=== PATIENT | female | born 1970 | race Two or more races ===

== ENCOUNTER 2024-05-25 20:00 | Emergency (ER) | payer MEDICAID ==
[~2024-05-25] VITALS: Ht 165.1 cm; Wt 67.3 kg
[2024-05-25 20:06] VITALS: BP 123/83; PULSE 85; RESP 16; TEMP 97.1; O2SAT 100
[2024-05-25] MEDS ORDERED: ACET-66 PO (22:11)
[2024-05-25] MEDS ORDERED: GUAIFDM PO (22:11)
[2024-05-25] MEDS ORDERED: IBUP-1554 PO (22:11)
== END 2024-05-25 22:38 | disposition home or self-care (01) ==
LOC: EMS 20:00
DX: S63.283A Dislocation of proximal interphalangeal joint of left middle finger, initial encounter (principal); X58.XXXA Exposure to other specified factors, initial encounter; Y93.89 Activity, other specified; Y92.89 Other specified places as the place of occurrence of the external cause; Y99.8 Other external cause status
CPT/HCPCS: 26770; 99284; 73130-TC; Z7502